=== PATIENT | female | born 1965 ===

== ENCOUNTER → 2020-06-29 | Outpatient (REF) | LOC: M EMP 08:27 | PROVIDERS: ATTEND Family Medicine | DX: Z11.52 Encounter for screening for COVID-19 (principal) ==

== ENCOUNTER → 2020-07-02 | Outpatient (REF) | LOC: M EMP 08:40 | PROVIDERS: ATTEND Family Medicine | DX: Z20.822 Contact with and (suspected) exposure to COVID-19 (principal) ==